=== PATIENT | male | born 1955 | race Hispanic/Latino ===

== ENCOUNTER 2018-12-12 08:20 | Inpatient (IN) | payer OTHER ==
[2018-12-12 08:52] LABS: Basophils % (Auto) 0.6 % (0.0-1.8); Eosinophils % (Auto) 0.3 % (0.0-4.3); Hemoglobin 15.5 gm/dl (11.8-15.2); Lymphocytes # (Auto) 1.2 K/mm3 (1.2-5.4); Lymphocytes % (Auto) 18.9 % (13.4-35.0); Mean Corpuscular HGB Conc 34 % (32-34); Mean Corpuscular Volume 107 fl (84-94); Monocytes # (Auto) 0.6 K/mm3 (0.0-0.8); Platelet Count 107 K/mm3 (140-440); Red Blood Count 4.32 M/mm3 (3.65-5.03); Red Cell Distribution Width 13.4 % (13.2-15.2)
[2018-12-12 09:06] LABS: BUN/Creatinine Ratio 12; Blood Urea Nitrogen 11 mg/dL (9-20); Calcium 8.9 mg/dL (8.4-10.2); Hemolysis Index 48
--- NOTE | 2018-12-12 09:12 | XRay Report ---
CHEST 2 VIEWS INDICATION: Chest Pain. COMPARISON: None FINDINGS: Support devices: None. Heart: Mild cardiomegaly Lungs/pleura: Mild pulmonary venous congestion and trace pleural effusions. Mild bibasilar atelectasi s is also suspected. No infiltrate. No pneumothorax. Additional findings: None. IMPRESSION: Mild CHF is suspected. Signer Name: David Matamoros Jr, MD Signed: 12/12/2018 9:08 AM Workstation Name: [id number]
[2018-12-12] MEDS ORDERED: LASIX IV STA (09:27)
--- NOTE | 2018-12-12 09:47 | Emergency Department Report ---
<ILEANA REDDY - Last Filed: 12/12/18 10:49> ED Chest Pain HPI - General Chief Complaint: Chest Pain Stated Complaint: CHEST PAIN/WAQAS Time Seen by Provider: 12/12/18 09:26 Source: patient Mode of arrival: Wheelchair Limitations: No Limitations - History of Present Illness Initial Comments: 62-year-old obese male smoker with no significant past medical history outside of peptic ulcer disease since emergency Department complaining of greater than 2 week history of progressively worsening chest pain, shortness of breath, lower extremity swelling which is now in the abdomen and genitals. Reports his symptoms worsen with minimal exertion. Reports no fever, chills, sweats no nausea no vomiting no hemoptysis no hematemesis or hematochezia. Hasn't had some dysuria reporting some postvoid dribbling and hesitancy when starting. To his knowledge he has no prostate history. -: Gradual Onset: during rest, during exertion Pain Location: substernal, left chest Pain Radiation: none Severity: mild Quality: tightness (ache) Consistency: constant Improves With: nothing Worsens With: nothing Other Symptoms: denies: syncope, acid taste in mouth, leg swelling, pa lpitations, burping Treatments Prior to Arrival: none - Related Data On Oral Contraceptives: No Allergies Allergy/AdvReac Type Severity Reaction Status Date / Time No Known Allergies Allergy Unverified 04/01/16 12:37 Heart Score - HEART Score History: Slightly suspicious EKG: Non-specific Age: 45-65 Risk factors: 1-2 risk factors Troponin: < normal limit HEART Score: 3 ED Review of Systems Comment: All other systems reviewed and negative ED Past Medical Hx - Past Medical History Previous Medical History?: No - Surgical History Additional Surgical History: abdominal surgery on ulcer - Social History Smoking Status: Current Every Day Smoker Substance Use Type: Alcohol ED Physical Exam - General Limitations: No Limitations General appearance: alert - Head Head exam: Present: atraumatic, normocephalic - Eye Eye exam: Present: normal appearance, PERRL - ENT ENT exam: Present: mucous membranes moist - Neck Neck exam: Present: normal inspection, other (mild JVD noted no bruits) - Respiratory Respiratory exam: Present: normal lung sounds bilaterally, rales. Absent: respiratory distress - Cardiovascular Cardiovascular Exam: Present: regular rate, normal rhythm. Absent: systolic murmur, diastolic murmur, rubs, gallop - GI/Abdominal GI/Abdominal exam: Present: soft, normal bowel sounds, other (swollen abdomen normal tympany no caput medusa) - Rectal Rectal exam: Present: deferred - Extremities Exam Extremities exam: Present: normal inspection, normal capillary refill, pedal edema (2+ bilateral Lotrimin edema extending into his lower legs and thighs also to the genitalia) - Back Exam Back exam: Present: normal inspection. Absent: CVA tenderness (R), CVA tenderness (L) - Neurological Exam Neurological exam: Present: alert, oriented X3, CN II-XII intact, normal gait - Psychiatric Psychiatric exam: Present: normal affect, normal mood - Skin Skin exam: Present: warm, dry, intact, normal color. Absent: rash ED Course - Consultations Consultation #1: 12/12/18 10:50 Case discussed with the hospitalists who advised me to admit the patient to telemetry and advised that I plays bridge orders. CHAI score - Chai Score Age > 65: (0) No Aspirin use within the Past 7 Days: (0) No 3 or more CAD Risk Factors: (0) No 2 or more Angina events in past 24 hrs: (0) No Known CAD with more than 50% Stenosis: (0) No Elevated Cardiac Markers: (0) No ST Deviation Greater than 0.5mm: (0) No CHAI Score: 0 ED Medical Decision Making - Lab Data Result diagrams: 12/12/18 08:39 12/12/18 08:39 - EKG Data EKG shows normal: sinus rhythm Rate: tachycardia - EKG Data When compared to previous EKG there are: previous EKG unavailable - Radiology Data Radiology results: report reviewed (chest x-ray shows mild CHF suspected) - Medical Decision Making 62-year-old male smoker with hypertension untreated and progressively worsening dyspnea angle tenderness swelling with chest x-ray indicative of CHF. Lungs have fluid as well swelling has progressed from the lower legs up to his head and abdomen his the is bordering anasarca. Plan is to admit to the hospital for diuresis and further evaluation of his cardiac function will likely need to obtain an echo to evaluate his ejection fraction and the severity of his cardiovascular disease that is currently untreated. I discussed with him the need to deep increase his smoking. Also need to have his prostate evaluated at some point this the issue she hasn't only began with the initiation of a swelling just over 2 weeks ago will reevaluate his urinary pattern also swelling has resolved. ED Disposition Clinical Impression: Heart failure Qualifiers: Heart failure type: unspecified Heart failure chronicity: acute Qualified Code(s): I50.9 - Heart failure, unspecified Dyspnea Qualifiers: Dyspnea type: shortness of breath Qualified Code(s): R06.02 - Shortness of breath; R06.00 - Dyspnea, unspecified; R06.01 - Orthopnea Chest pain Qualifiers: Chest pain type: unspecified Qualified Code(s): R07.9 - Chest pain, unspecified Disposition: 09 OP ADMIT IP TO THIS HOSP Is pt being admited?: Yes Does the pt Need Aspirin: Yes Condition: Critical <BIMAL IZAGUIRRE III - Last Filed: 12/12/18 10:56> ED Review of Systems ROS: Stated complaint: CHEST PAIN/WAQAS Other details as noted in HPI ED Physical Exam - General Limitations: No Limitations General appearance: alert - Head Head exam: Present: atraumatic, normocephalic - Eye Eye exam: Present: normal appearance, PERRL - ENT ENT exam: Present: mucous membranes moist - Neck Neck exam: Present: normal inspection - Respiratory Respiratory exam: Present: rales - Cardiovascular Cardiovascular Exam: Present: regular rate, normal rhythm - GI/Abdominal GI/Abdominal exam: Present: soft, normal bowel sounds. Absent: distended, te nderness, guarding ED Course Vital Signs 12/12/18 08:28 Temperature 97.8 F Pulse Rate 112 H Respiratory 24 Rate Blood Pressure 149/101 O2 Sat by Pulse 98 Oximetry - Reevaluation(s) Reevaluation #1: I examined the patient. Patient states she came in for chest pain shortness of breath. Patient will be admitted to the hospital service. Patient agrees with plan of care. I discussed all results patient. 12/12/18 10:41 ED Medical Decision Making - Lab Data Result diagrams: 12/12/18 08:39 12/12/18 08:39 Critical care attestation.: If time is entered above; I have spent that time in minutes in the direct care of this critically ill patient, excluding procedure time. ED Disposition Is pt being admited?: Yes Does the pt Need Aspirin: Yes Time of Disposition: 10:56
[2018-12-12] MEDS ORDERED: ASPIRIN PO STA (10:00)
--- NOTE | 2018-12-12 10:46 | History and Physical Report ---
History of Present Illness Date of examination: 12/12/18 Date of admission: 12/12/18 Chief complaint: Chest pain shortness of breath , swelling external genitalia extremities for the last 2 weeks History of present illness: 62-yr obese male patient with ongoing tobacco use presented to the emergency room with bilateral lower extremity edema and lower abdominal wall and scrotal edema for the last 2 weeks, patient has no significant past medical history not on any medications Patient denies chest pain complaints of shortness of breath, reduced effort tolerance, mild orthopnea Patient has no urinary symptoms no nausea vomiting or abdominal pain Initial workup is consistent with congestive heart failure, elevated BNP, chest x-ray mild CHF Past History Past Medical History: No medical history Past Surgical History: Other (peptic ulcer surgery) Social history: smoking. denies: alcohol abuse, prescription drug abuse Family history: hypertension Medications and Allergies Allergies Allergy/AdvReac Type Severity Reaction Status Date / Time No Known Allergies Allergy Verified 12/12/18 11:11 Home Medications Medication Instructions Recorded Confirmed Last Taken Type No Known Home Medications [No 12/12/18 12/12/18 Unknown History Reported Home Medications] Active Meds: Active Medications Aspirin (Aspirin) 325 mg PO ONCE STA Stop: 12/12/18 10:01 Review of Systems Constitutional: weakness, no weight loss, no weight gain Ears, nose, mouth and throat: no nasal congestion, no nasal discharge Cardiovascular: edema, shortness of breath, no chest pain Respiratory: cough, shortness of breath Gastrointestinal: no abdominal pain, no nausea, no vomiting Genitourinary Male: no dysuria Musculoskeletal: no myalgias, no arthritis Integumentary: no rash, no lesions Neurological: weakness, no seizures, no syncope Psychiatric: no anxiety, no depression Endocrine: no cold intolerance, no heat intolerance Hematologic/Lymphatic: no easy bruising, no easy bleeding Allergic/Immunologic: no urticaria, no allergic rhinitis Exam - Constitutional Vitals: Temp Pulse Resp BP Pulse Ox 97.8 F 112 H 24 149/101 98 12/12/18 08:28 12/12/18 08:28 12/12/18 08:28 12/12/18 08:28 12/12/18 08:28 General appearance: Present: mild distress, well-nourished, obese - EENT Eyes: Present: PERRL, EOM intact - Neck Neck: Present: supple, normal ROM - Respiratory Respiratory effort: normal Respiratory: bilateral: diminished, rales, negative: rhonchi, wheezing - Cardiovascular Rhythm: regular Heart Sounds: Present: S1 & S2 - Extremities Extremities: no ischemia Extremity abnormal: edema - Abdominal General gastrointestinal: Present: soft, non-tender, non-distended, normal bowel sounds Male genitourinary: Present: scrotal edema - Integumentary Integumentary: Present: clear, warm - Musculoskeletal Musculoskeletal: strength equal bilaterally - Psychiatric Psychiatric: appropriate mood/affect, cooperative - Neurologic Neurologic: CNII-XII intact, moves all extremities Results - Labs CBC & Chem 7: 12/12/18 08:39 12/12/18 08:39 Labs: Abnormal lab results 12/12/18 12/12/18 12/12/18 Range/Units 08:39 08:39 08:39 Hgb 15.5 H (11.8-15.2) gm/dl Hct 46.0 H (35.5-45.6) % MCV 107 H (84-94) fl MCH 36 H (28-32) pg Plt Count 107 L (140-440) K/mm3 Mcclain % (Auto) 9.0 H (0.0-7.3) % Seg Neutrophils % 71.2 H (40.0-70.0) % Sodium 132 L (137-145) mmol/L Chloride 94.1 L (98-107) mmol/L Carbon Dioxide 18 L (22-30) mmol/L Glucose 180 H (75-100) mg/dL NT-Pro-B Natriuret Pep 7938 H (0-900) pg/mL Assessment and Plan --Lower extremity edema; Possible congestive heart failure IV diuretics input output monitoring Low-sodium diet, daily weights --Possible congestive heart failure; Normal ejection fraction, echocardiogram for LV function and EF IV Lasix, beta blockers, andrew inhibitors, low sodium diet Fluid restriction, input output monitoring cardiology consult if needed --Hyponatremia; probably secondary to fluid overload diuretics, closely monitor electrolytes --Ongoing tobacco use; smoking cessation Nicotine patch as needed --Obesity; BMI 32.1 Advice H reduction when medically stable --DVT prophylaxis; Lovenox Monitor clinically and adjust management as needed
[2018-12-12] MEDS ORDERED: ASPIRIN ONE (11:12)
[2018-12-12] MEDS: ZESTRIL PO SCH (16:52)
[2018-12-12] MEDS: HABITROL TD SCH (16:54)
[2018-12-12] MEDS: LASIX IV SCH (16:59)
[2018-12-12] MEDS ORDERED: TYLENOL PO PRN (19:57)
[2018-12-12] MEDS ORDERED: COREG PO SCH (22:00)
[2018-12-12] MEDS: PEPCID PO SCH (22:27)
[2018-12-12] MEDS: ENOXAPARIN SUB-Q SCH (23:51)
[2018-12-13 05:14] LABS: BUN/Creatinine Ratio 15; Blood Urea Nitrogen 12 mg/dL (9-20); Calcium 8.6 mg/dL (8.4-10.2); Hemolysis Index 10
[2018-12-13] MEDS ORDERED: COREG PO SCH (07:55)
[2018-12-13] MEDS: LASIX IV SCH ×2 (07:59→19:02)
--- NOTE | 2018-12-13 08:02 | Progress Note ---
Assessment and Plan Assessment and plan: --New onset dilated cardiomyopathy; ejection fraction 10-15% IV diuretics, beta blockers, andrew inhibitors, input output monitoring Daily weights, low sodium diet, fluid restriction Cardiology consult . --Lower extremity edema; present on admission Due to congestive heart failure Mild improvement, continue current management --Hyponatremia; probably secondary to fluid overload diuretics, mild improvement --Hypokalemia; replace with KCl --Hypomagnesemia; replace with IV mag sulfate Monitor electrolytes --Ongoing tobacco use; smoking cessation Nicotine patch as needed --Obesity; BMI 32.1 - 30.7 Probably due to fluid overload --DVT prophylaxis; Lovenox Monitor clinically and adjust management as needed Follow cardiology evaluation and recommendations Plan of care discussed with the patient History Interval history: Patient seen and examined medical records reviewed Patient feels slightly better still has, pedal edema Echocardiogram revealed cardiomyopathy here for 10-15% Patient still has mild shortness of breath, denies chest pain Unable to sleep last night Vital signs reviewed Hospitalist Physical - Constitutional Vitals: Temp Pulse Resp BP Pulse Ox 97.9 F 92 H 20 110/78 95 12/13/18 05:09 12/13/18 05:08 12/13/18 05:09 12/13/18 05:08 12/13/18 05:08 General appearance: Present: mild distress, well-nourished, obese - EENT Eyes: Present: PERRL, EOM intact - Neck Neck: Present: supple, normal ROM - Respiratory Respiratory effort: normal Respiratory: bilateral: diminished, rales, negative: rhonchi, wheezing - Cardiovascular Rhythm: regular Heart Sounds: Present: S1 & S2 - Extremities Extremities: no ischemia Extremity abnormal: edema - Abdominal General gastrointestinal: soft, non-tender, non-distended, normal bowel sounds - Integumentary Integumentary: Present: clear, warm - Psychiatric Psychiatric: appropriate mood/affect, cooperative - Neurologic Neurologic: CNII-XII intact, moves all extremities Results - Labs CBC & Chem 7: 12/12/18 08:39 12/13/18 04:19 Labs: Laboratory Last Values WBC 6.1 K/mm3 (4.5-11.0) 12/12/18 08:39 RBC 4.32 M/mm3 (3.65-5.03) 12/12/18 08:39 Hgb 15.5 gm/dl (11.8-15.2) H 12/12/18 08:39 Hct 46.0 % (35.5-45.6) H 12/12/18 08:39 MCV 107 fl (84-94) H 12/12/18 08:39 MCH 36 pg (28-32) H 12/12/18 08:39 MCHC 34 % (32-34) 12/12/18 08:39 RDW 13.4 % (13.2-15.2) 12/12/18 08:39 Plt Count 107 K/mm3 (140-440) L 12/12/18 08:39 Lymph % (Auto) 18.9 % (13.4-35.0) 12/12/18 08:39 Mora % (Auto) 9.0 % (0.0-7.3) H 12/12/18 08:39 Eos % (Auto) 0.3 % (0.0-4.3) 12/12/18 08:39 Baso % (Auto) 0.6 % (0.0-1.8) 12/12/18 08:39 Lymph # 1.2 K/mm3 (1.2-5.4) 12/12/18 08:39 Mora # 0.6 K/mm3 (0.0-0.8) 12/12/18 08:39 Eos # 0.0 K/mm3 (0.0-0.4) 12/12/18 08:39 Baso # 0.0 K/mm3 (0.0-0.1) 12/12/18 08:39 Seg Neutrophils % 71.2 % (40.0-70.0) H 12/12/18 08:39 Seg Neutrophils # 4.4 K/mm3 (1.8-7.7) 12/12/18 08:39 Sodium 135 mmol/L (137-145) L 12/13/18 04:19 Potassium 3.1 mmol/L (3.6-5.0) L D 12/13/18 04:19 Chloride 97.0 mmol/L (98-107) L 12/13/18 04:19 Carbon Dioxide 21 mmol/L (22-30) L 12/13/18 04:19 Anion Gap 20 mmol/L 12/13/18 04:19 BUN 12 mg/dL (9-20) 12/13/18 04:19 Creatinine 0.8 mg/dL (0.8-1.5) 12/13/18 04:19 Estimated GFR > 60 ml/min 12/13/18 04:19 BUN/Creatinine Ratio 15 % 12/13/18 04:19 Glucose 157 mg/dL (75-100) H 12/13/18 04:19 Calcium 8.6 mg/dL (8.4-10.2) 12/13/18 04:19 Magnesium 1.50 mg/dL (1.7-2.3) L 12/13/18 04:19 Troponin T 0.027 ng/mL (0.00-0.029) 12/12/18 16:32 NT-Pro-B Natriuret Pep 7938 pg/mL (0-900) H 12/12/18 08:39 Active Medications - Current Medications Current Medications: Generic Name Dose Route Start Last Admin Trade Name Freq PRN Reason Stop Dose Admin Acetaminophen 650 mg 12/12/18 19:57 12/12/18 20:38 Tylenol PO 650 mg Q4H PRN Administration Pain, Mild (1-3) Aspirin 81 mg 12/13/18 10:00 Baby Aspirin PO QDAY [facility] Carvedilol 3.125 mg 12/13/18 07:55 Coreg PO BID [facility] Enoxaparin Sodium 40 mg 12/12/18 22:00 12/12/18 23:51 Lovenox SUB-Q 40 mg QDAY@2200 GERARDO Administration Famotidine 20 mg 12/12/18 22:00 12/12/18 22:27 Pepcid PO 20 mg BID GERARDO Administration Furosemide 40 mg 12/12/18 18:00 12/12/18 16:59 Lasix IV 40 mg 0600,1800 GERARDO Administration Magnesium Sulfate 2 gm in 50 mls @ 25 mls/hr 12/13/18 07:57 Magnesium Sulfate 2gm/50ml IV 12/13/18 09:56 ONCE ONE Lisinopril 5 mg 12/12/18 15:00 12/12/18 16:52 Zestril PO 5 mg QDAY GERARDO Administration Nicotine 14 mg 12/12/18 15:00 12/12/18 16:54 Habitrol TD 14 mg QDAY GERARDO Administration Potassium Chloride 20 meq 12/13/18 10:00 K-Dur PO QDAY GERARDO Potassium Chloride 40 meq 12/13/18 07:55 K-Dur PO 12/13/18 07:56 ONCE ONE
[2018-12-13] MEDS ORDERED: K-DUR PO ONE (09:00)
[2018-12-13] MEDS ORDERED: MAGNESIUM SULFATE 2GM/50ML 2 GM/50 ML BAG IV ONE (09:30)
[2018-12-13] MEDS: HABITROL TD SCH (09:45)
[2018-12-13] MEDS: PEPCID PO SCH ×2 (09:46→22:47)
[2018-12-13] MEDS: BABY ASPIRIN PO SCH (09:46)
[2018-12-13] MEDS ORDERED: K-DUR PO SCH (10:00)
[2018-12-13] MEDS: COREG PO SCH ×2 (10:50→22:48)
[2018-12-13] MEDS: ZESTRIL PO SCH (10:50)
--- NOTE | 2018-12-13 14:11 | Consultation ---
History of Present Illness Consult date: 12/13/18 Consult reason: congestive heart failure History of present illness: This is a 62-year old male with no prior medical history, who takes no medic ations, that presented with shortness of breath and lower extremity edema. Chest x-ray shows mild interstitial edema. Further evaluation with an echocardiogram reveals a 4 chamber dilated cardiomyopathy with severe decrease LV ejection fraction 10-15%. 12 lead ECG is sinus tachycardia with first degree AV block versus an atrial tachycardia. Cardiac consultation has been requested. Past History Past Medical History: No medical history Social history: smoking. denies: alcohol abuse, prescription drug abuse Family history: hypertension Medications and Allergies Allergies Allergy/AdvReac Type Severity Reaction Status Date / Time No Known Allergies Allergy Verified 12/12/18 11:11 Home Medications Medication Instructions Recorded Confirmed Last Taken Type No Known Home Medications [No 12/12/18 12/12/18 Unknown History Reported Home Medications] Active Meds: Active Medications Acetaminophen (Tylenol) 650 mg PO Q4H PRN PRN Reason: Pain, Mild (1-3) Last Admin: 12/12/18 20:38 Dose: 650 mg Documented by: Aspirin (Baby Aspirin) 81 mg PO QDAY [facility] Last Admin: 12/13/18 09:46 Dose: 81 mg Documented by: Carvedilol (Coreg) 3.125 mg PO BID [facility] Last Admin: 12/13/18 10:50 Dose: 3.125 mg Documented by: Enoxaparin Sodium (Lovenox) 40 mg SUB-Q QDAY@2200 [facility] Last Admin: 12/12/18 23:51 Dose: 40 mg Documented by: Famotidine (Pepcid) 20 mg PO BID [facility] Last Admin: 12/13/18 09:46 Dose: 20 mg Documented by: Furosemide (Lasix) 40 mg IV 0600,1800 [facility] Last Admin: 12/13/18 07:59 Dose: 40 mg Documented by: Lisinopril (Zestril) 5 mg PO QDAY [facility] Last Admin: 12/13/18 10:50 Dose: 5 mg Documented by: Nicotine (Habitrol) 14 mg TD QDAY [facility] Last Admin: 12/13/18 09:45 Dose: 14 mg Documented by: Potassium Chloride (K-Dur) 20 meq PO QDAY [facility] Last Admin: 12/13/18 10:51 Dose: 20 meq Documented by: Physical Examination Vital Signs Temp Pulse Resp BP Pulse Ox 97.8 F 112 H 24 149/101 98 12/12/18 08:28 12/12/18 08:28 12/12/18 08:28 12/12/18 08:28 12/12/18 08:28 General appearance: no acute distress HEENT: Positive: PERRL Neck: Positive: trachea midline Cardiac: Positive: Tachycardia Lungs: Positive: Decreased Breath Sounds Extremities: Present: edema Results 12/12/18 08:39 12/13/18 04:19 Comprehensive Metabolic Panel 12/13/18 Range/Units 04:19 Sodium 135 L (137-145) mmol/L Potassium 3.1 L D (3.6-5.0) mmol/L Chloride 97.0 L (98-107) mmol/L Carbon Dioxide 21 L (22-30) mmol/L BUN 12 (9-20) mg/dL Creatinine 0.8 (0.8-1.5) mg/dL Glucose 157 H (75-100) mg/dL Calcium 8.6 (8.4-10.2) mg/dL Assessment and Plan Acute systolic heart failure Hypokalemia Thrombocytopenia Tobacco abuse Echocardiogram reveals a 4 chamber dilated cardiomyopathy with severe decrease LV ejection fraction 10-15%. ECG is sinus tachycardia with first degree AV block versus an atrial tachycardia. Recommendations: Medical therapy for systolic heart failure to include IV diuretics, afterload reduction agents and beta blockers. Pre-discharge stress thallium test. LifeVest placement on discharge.
[2018-12-13] MEDS: ENOXAPARIN SUB-Q SCH (22:47)
[2018-12-14 05:42] LABS: BUN/Creatinine Ratio 18; Blood Urea Nitrogen 14 mg/dL (9-20); Calcium 8.9 mg/dL (8.4-10.2); Hemolysis Index 6
[2018-12-14] MEDS: LASIX IV SCH ×2 (06:09→18:53)
--- NOTE | 2018-12-14 09:08 | Progress Note ---
Assessment and Plan Acute systolic heart failure, new diagnosis Hypokalemia Thrombocytopenia Tobacco abuse Echocardiogram reveals a 4-chamber dilated cardiomyopathy with severe decrease LV ejection fraction 10-15%. ECG is sinus tachycardia with first degree AV block versus an atrial tachycardia. Recommendations: Sodium/fluid restriction. Aggressive medical therapy for heart failure including afterload agents, beta blockers, oral antiplatelets, diuretics and spironolactone. Predischarge pharmacologic stress test with thallium. Patient will also be considered for a LifeVest monitor on discharge. Subjective Date of service: 12/14/18 Interval history: Patient has no complaints. Admits he is diuresing well. Objective Vital Signs Temp Pulse Resp BP Pulse Ox 12/14/18 05:32 98.6 F 92 H 22 101/68 96 12/14/18 02:00 20 12/13/18 23:28 97.7 F 94 H 18 107/77 88 12/13/18 22:48 88 12/13/18 16:38 97.8 F 89 20 100/70 97 12/13/18 11:09 97.9 F 95 H 20 100/69 94 12/13/18 10:50 94 H 100/66 - Physical Examination General: No Apparent Distress HEENT: Positive: PERRL Neck: Positive: trachea midline Cardiac: Positive: Reg Rate and Rhythm Lungs: Positive: Decreased Breath Sounds Neuro: Positive: Grossly Intact Extremities: Present: edema - Labs and Meds Comprehensive Metabolic Panel 12/14/18 Range/Units 04:40 Sodium 133 L (137-145) mmol/L Potassium 3.6 (3.6-5.0) mmol/L Chloride 95.2 L (98-107) mmol/L Carbon Dioxide 23 (22-30) mmol/L BUN 14 (9-20) mg/dL Creatinine 0.8 (0.8-1.5) mg/dL Glucose 132 H (75-100) mg/dL Calcium 8.9 (8.4-10.2) mg/dL
[2018-12-14] MEDS ORDERED: MAGNESIUM SULFATE 2GM/50ML 2 GM/50 ML BAG IV ONE (09:30)
[2018-12-14] MEDS: HABITROL TD SCH (10:04)
[2018-12-14] MEDS: COREG PO SCH ×2 (10:06→21:10)
[2018-12-14] MEDS: BABY ASPIRIN PO SCH (10:07)
[2018-12-14] MEDS: ALDACTONE PO SCH (10:07)
[2018-12-14] MEDS: PEPCID PO SCH ×2 (10:07→21:14)
[2018-12-14] MEDS: ZESTRIL PO SCH (10:09)
--- NOTE | 2018-12-14 15:23 | Progress Note ---
Assessment and Plan Assessment and plan: --New onset dilated cardiomyopathy; ejection fraction 10-15% IV diuretics, beta blockers, andrew inhibitors, input output monitoring Daily weights, low sodium diet, fluid restriction Cardiology following stress test tomorrow, --Lower extremity edema; present on admission Due to congestive heart failure Mild improvement, continue current management --Hyponatremia; probably secondary to fluid overload diuretics, mild improvement --Hypokalemia; replace with KCl --Hypomagnesemia; replace with IV mag sulfate Monitor electrolytes --Ongoing tobacco use; smoking cessation Nicotine patch as needed --Obesity; BMI 32.1 - 30.7 Probably due to fluid overload --DVT prophylaxis; Lovenox Monitor clinically and adjust management as needed Follow cardiology evaluation and recommendations Plan of care discussed with the patient History Interval history: Patient seen and examined medical records reviewed Patient continues to have shortness of breath significantly improved since yesterday Alert awake oriented, vital signs noted Hospitalist Physical - Constitutional Vitals: Temp Pulse Resp BP Pulse Ox 97.6 F 90 22 95/62 96 12/14/18 11:34 12/14/18 11:34 12/14/18 11:34 12/14/18 11:34 12/14/18 11:34 General appearance: Present: mild distress, well-nourished, obese - EENT Eyes: Present: PERRL, EOM intact - Neck Neck: Present: supple, normal ROM - Respiratory Respiratory effort: normal Respiratory: bilateral: diminished, rales, negative: rhonchi, wheezing - Cardiovascular Rhythm: regular Heart Sounds: Present: S1 & S2 - Extremities Extremities: no ischemia Extremity abnormal: edema - Abdominal General gastrointestinal: soft, non-tender, non-distended, normal bowel sounds - Integumentary Integumentary: Present: clear, warm - Psychiatric Psychiatric: appropriate mood/affect, cooperative - Neurologic Neurologic: moves all extremities Results - Labs CBC & Chem 7: 12/12/18 08:39 12/14/18 04:40 Labs: Laboratory Last Values WBC 6.1 K/mm3 (4.5-11.0) 12/12/18 08:39 RBC 4.32 M/mm3 (3.65-5.03) 12/12/18 08:39 Hgb 15.5 gm/dl (11.8-15.2) H 12/12/18 08:39 Hct 46.0 % (35.5-45.6) H 12/12/18 08:39 MCV 107 fl (84-94) H 12/12/18 08:39 MCH 36 pg (28-32) H 12/12/18 08:39 MCHC 34 % (32-34) 12/12/18 08:39 RDW 13.4 % (13.2-15.2) 12/12/18 08:39 Plt Count 107 K/mm3 (140-440) L 12/12/18 08:39 Lymph % (Auto) 18.9 % (13.4-35.0) 12/12/18 08:39 Luce % (Auto) 9.0 % (0.0-7.3) H 12/12/18 08:39 Eos % (Auto) 0.3 % (0.0-4.3) 12/12/18 08:39 Baso % (Auto) 0.6 % (0.0-1.8) 12/12/18 08:39 Lymph # 1.2 K/mm3 (1.2-5.4) 12/12/18 08:39 Luce # 0.6 K/mm3 (0.0-0.8) 12/12/18 08:39 Eos # 0.0 K/mm3 (0.0-0.4) 12/12/18 08:39 Baso # 0.0 K/mm3 (0.0-0.1) 12/12/18 08:39 Seg Neutrophils % 71.2 % (40.0-70.0) H 12/12/18 08:39 Seg Neutrophils # 4.4 K/mm3 (1.8-7.7) 12/12/18 08:39 Sodium 133 mmol/L (137-145) L 12/14/18 04:40 Potassium 3.6 mmol/L (3.6-5.0) 12/14/18 04:40 Chloride 95.2 mmol/L (98-107) L 12/14/18 04:40 Carbon Dioxide 23 mmol/L (22-30) 12/14/18 04:40 Anion Gap 18 mmol/L 12/14/18 04:40 BUN 14 mg/dL (9-20) 12/14/18 04:40 Creatinine 0.8 mg/dL (0.8-1.5) 12/14/18 04:40 Estimated GFR > 60 ml/min 12/14/18 04:40 BUN/Creatinine Ratio 18 % 12/14/18 04:40 Glucose 132 mg/dL (75-100) H 12/14/18 04:40 Calcium 8.9 mg/dL (8.4-10.2) 12/14/18 04:40 Magnesium 1.60 mg/dL (1.7-2.3) L 12/14/18 04:40 Troponin T 0.027 ng/mL (0.00-0.029) 12/12/18 16:32 NT-Pro-B Natriuret Pep 7938 pg/mL (0-900) H 12/12/18 08:39 Active Medications - Current Medications Current Medications: Generic Name Dose Route Start Last Admin Trade Name Freq PRN Reason Stop Dose Admin Acetaminophen 650 mg 12/12/18 19:57 12/12/18 20:38 Tylenol PO 650 mg Q4H PRN Administration Pain, Mild (1-3) Aspirin 81 mg 12/13/18 10:00 12/14/18 10:07 Baby Aspirin PO 81 mg QDAY GERARDO Administration Carvedilol 3.125 mg 12/13/18 10:00 12/14/18 10:06 Coreg PO 3.125 mg BID GERARDO Administration Enoxaparin Sodium 40 mg 12/12/18 22:00 12/13/18 22:47 Lovenox SUB-Q 40 mg QDAY@2200 GERARDO Administration Famotidine 20 mg 12/12/18 22:00 12/14/18 10:07 Pepcid PO 20 mg BID GERARDO Administration Furosemide 40 mg 12/12/18 18:00 12/14/18 06:09 Lasix IV 40 mg 0600,1800 GERARDO Administration Lisinopril 5 mg 12/12/18 15:00 12/14/18 10:09 Zestril PO Not Given QDAY GERARDO Nicotine 14 mg 12/12/18 15:00 12/14/18 10:04 Habitrol TD 14 mg QDAY GERARDO Administration Spironolactone 25 mg 12/14/18 10:00 12/14/18 10:07 Aldactone PO 25 mg QDAY GERARDO Administration
[2018-12-14] MEDS: ENOXAPARIN SUB-Q SCH (21:12)
[2018-12-15] MEDS: LASIX IV SCH (06:26)
--- NOTE | 2018-12-15 08:49 | Progress Note ---
Assessment and Plan Assessment and plan: Stress test canceled by cardiology --New onset dilated cardiomyopathy; ejection fraction 10-15% IV diuretics, beta blockers, andrew inhibitors,spiranolactone input output monitoring Daily weights, low sodium diet, fluid restriction Cardiology following stress test tomorrow, Patient has LifeVest, patient is refusing to wear due to discomfort --Lower extremity edema; present on admission Due to congestive heart failure Mild improvement, continue current management --Hyponatremia; probably secondary to fluid overload diuretics, mild improvement --Hypokalemia; replace with KCl --Hypomagnesemia; replace with IV mag sulfate Monitor electrolytes --Ongoing tobacco use; smoking cessation Nicotine patch as needed --Obesity; BMI 32.1 - 30.7 Probably due to fluid overload --DVT prophylaxis; Lovenox Monitor clinically and adjust management as needed Follow cardiology evaluation and recommendations Plan of care discussed with the patient History Interval history: Patient seen and examined medical records reviewed Patient is upset because his stress test was canceled today by cardiology Patient denies chest pain or shortness of breath Refusing to life is difficult to discomfort Vital signs noted Hospitalist Physical - Constitutional Vitals: Temp Pulse Resp BP Pulse Ox 97.3 F L 93 H 22 114/86 93 12/15/18 05:47 12/15/18 05:47 12/15/18 05:47 12/15/18 05:47 12/15/18 05:47 General appearance: Present: no acute distress, well-nourished, obese - EENT Eyes: Present: PERRL, EOM intact - Neck Neck: Present: supple, normal ROM - Respiratory Respiratory effort: normal Respiratory: bilateral: diminished, rales, negative: rhonchi, wheezing - Cardiovascular Rhythm: regular Heart Sounds: Present: S1 & S2 - Extremities Extremities: no ischemia Extremity abnormal: edema - Abdominal General gastrointestinal: soft, non-tender, non-distended, normal bowel sounds - Integumentary Integumentary: Present: clear, warm - Psychiatric Psychiatric: appropriate mood/affect, cooperative - Neurologic Neurologic: CNII-XII intact, moves all extremities Results - Labs CBC & Chem 7: 12/12/18 08:39 12/14/18 04:40 Labs: Laboratory Last Values WBC 6.1 K/mm3 (4.5-11.0) 12/12/18 08:39 RBC 4.32 M/mm3 (3.65-5.03) 12/12/18 08:39 Hgb 15.5 gm/dl (11.8-15.2) H 12/12/18 08:39 Hct 46.0 % (35.5-45.6) H 12/12/18 08:39 MCV 107 fl (84-94) H 12/12/18 08:39 MCH 36 pg (28-32) H 12/12/18 08:39 MCHC 34 % (32-34) 12/12/18 08:39 RDW 13.4 % (13.2-15.2) 12/12/18 08:39 Plt Count 107 K/mm3 (140-440) L 12/12/18 08:39 Lymph % (Auto) 18.9 % (13.4-35.0) 12/12/18 08:39 [place] % (Auto) 9.0 % (0.0-7.3) H 12/12/18 08:39 Eos % (Auto) 0.3 % (0.0-4.3) 12/12/18 08:39 Baso % (Auto) 0.6 % (0.0-1.8) 12/12/18 08:39 Lymph # 1.2 K/mm3 (1.2-5.4) 12/12/18 08:39 [place] # 0.6 K/mm3 (0.0-0.8) 12/12/18 08:39 Eos # 0.0 K/mm3 (0.0-0.4) 12/12/18 08:39 Baso # 0.0 K/mm3 (0.0-0.1) 12/12/18 08:39 Seg Neutrophils % 71.2 % (40.0-70.0) H 12/12/18 08:39 Seg Neutrophils # 4.4 K/mm3 (1.8-7.7) 12/12/18 08:39 Sodium 133 mmol/L (137-145) L 12/14/18 04:40 Potassium 3.6 mmol/L (3.6-5.0) 12/14/18 04:40 Chloride 95.2 mmol/L (98-107) L 12/14/18 04:40 Carbon Dioxide 23 mmol/L (22-30) 12/14/18 04:40 Anion Gap 18 mmol/L 12/14/18 04:40 BUN 14 mg/dL (9-20) 12/14/18 04:40 Creatinine 0.8 mg/dL (0.8-1.5) 12/14/18 04:40 Estimated GFR > 60 ml/min 12/14/18 04:40 BUN/Creatinine Ratio 18 % 12/14/18 04:40 Glucose 132 mg/dL (75-100) H 12/14/18 04:40 Calcium 8.9 mg/dL (8.4-10.2) 12/14/18 04:40 Magnesium 1.60 mg/dL (1.7-2.3) L 12/14/18 04:40 Troponin T 0.027 ng/mL (0.00-0.029) 12/12/18 16:32 NT-Pro-B Natriuret Pep 7938 pg/mL (0-900) H 12/12/18 08:39 Active Medications - Current Medications Current Medications: Generic Name Dose Route Start Last Admin Trade Name Freq PRN Reason Stop Dose Admin Acetaminophen 650 mg 12/12/18 19:57 12/12/18 20:38 Tylenol PO 650 mg Q4H PRN Administration Pain, Mild (1-3) Aspirin 81 mg 12/13/18 10:00 12/14/18 10:07 Baby Aspirin PO 81 mg QDAY GERARDO Administration Carvedilol 3.125 mg 12/13/18 10:00 12/14/18 21:10 Coreg PO 3.125 mg BID GERARDO Administration Enoxaparin Sodium 40 mg 12/12/18 22:00 12/14/18 21:12 Lovenox SUB-Q 40 mg QDAY@2200 GERARDO Administration Famotidine 20 mg 12/12/18 22:00 12/14/18 21:14 Pepcid PO 20 mg BID GERARDO Administration Furosemide 40 mg 12/12/18 18:00 12/15/18 06:26 Lasix IV 40 mg 0600,1800 GERARDO Administration Lisinopril 5 mg 12/12/18 15:00 12/14/18 10:09 Zestril PO Not Given QDAY GERARDO Nicotine 14 mg 12/12/18 15:00 12/14/18 10:04 Habitrol TD 14 mg QDAY GERARDO Administration Spironolactone 25 mg 12/14/18 10:00 12/14/18 10:07 Aldactone PO 25 mg QDAY GERARDO Administration
[2018-12-15] MEDS: ALDACTONE PO SCH (09:52)
[2018-12-15] MEDS: BABY ASPIRIN PO SCH (09:52)
[2018-12-15] MEDS: COREG PO SCH (09:53)
[2018-12-15] MEDS: HABITROL TD SCH (09:53)
[2018-12-15] MEDS: PEPCID PO SCH (09:53)
[2018-12-15] MEDS: ZESTRIL PO SCH (09:53)
--- NOTE | 2018-12-15 11:59 | Progress Note ---
Assessment and Plan - Patient Problems (1) Heart failure Current Visit: Yes Status: Acute Qualifiers: Heart failure type: unspecified Heart failure chronicity: acute Qualified Code(s): I50.9 - Heart failure, unspecified Plan to address problem: Patient presented with symptoms of for systolic heart failure, four-chamber cardiomyopathy on echocardiogram suggests a nonischemic cardiomyopathy. He has been fitted with LifeVest monitoring, and is on guideline directed medical therapy for cardiomyopathy and systolic heart failure. The patient is stable for cardiac discharge, he will follow up in our office in one week, and pharmacologic stress testing for ischemia assessment will be done in the outpatient setting. Subjective Date of service: 12/15/18 Interval history: Patient is comfortable, looks and feels well, no cardiac complaints. He wants to go home today. He was fitted last night with LifeVest for outpatient monitoring. Objective Vital Signs Temp Pulse Resp BP Pulse Ox 12/15/18 05:47 97.3 F L 93 H 22 114/86 93 12/14/18 23:00 19 12/14/18 22:56 98.3 F 87 18 88/55 92 12/14/18 21:10 95 H 116/80 12/14/18 17:32 98.0 F 95 H 22 120/83 95 - Physical Examination General: No Apparent Distress HEENT: Positive: PERRL Neck: Positive: trachea midline Cardiac: Positive: Reg Rate and Rhythm Lungs: Positive: Decreased Breath Sounds Neuro: Positive: Grossly Intact Extremities: Present: edema
[2018-12-15 12:36] VITALS: BP 93/64
[2018-12-15 13:39] LABS: BUN/Creatinine Ratio 16; Blood Urea Nitrogen 16 mg/dL (9-20); Calcium 9.6 mg/dL (8.4-10.2); Hemolysis Index 10
--- NOTE | 2018-12-15 14:13 | Discharge Summary ---
Providers - Providers Date of Admission: 12/12/18 10:46 Date of discharge: 12/15/18 Attending physician: ELIZABETH MATTHEWS 12/13/18 07:52 Consult to Physician [CONS] Routine Comment: Consulting Provider: ALEXIS SANCHEZ Physician Instructions: Reason For Exam: New onset Dila CMP EF 10-15% Primary care physician: DEL ALEJANDRA MD Hospitalization Condition: Fair Disposition: DC-01 TO HOME OR SELFCARE Time spent for discharge: 32 min Core Measure Documentation - Palliative Care Palliative Care/ Comfort Measures: Not Applicable - Core Measures Any of the following diagnoses?: heart failure - Heart Failure Discharge Requirements ALBINA/ARB for LVSD if EF <40%: Yes Beta alisa at discharge: Yes Exam - Constitutional Vitals: Temp Pulse Resp BP Pulse Ox 98.6 F 92 H 20 93/64 91 12/15/18 11:42 12/15/18 11:42 12/15/18 11:42 12/15/18 11:42 12/15/18 11:42 General appearance: Present: no acute distress, well-nourished - EENT Eyes: Present: PERRL, EOM intact - Neck Neck: Present: supple, normal ROM - Respiratory Respiratory effort: normal Respiratory: bilateral: diminished, rales, negative: rhonchi, wheezing - Cardiovascular Rhythm: regular Heart Sounds: Present: S1 & S2 - Extremities Extremities: no ischemia Extremity abnormal: edema - Abdominal General gastrointestinal: Present: soft, non-tender, non-distended, normal bowel sounds - Integumentary Integumentary: Present: clear, warm - Musculoskeletal Musculoskeletal: strength equal bilaterally - Psychiatric Psychiatric: appropriate mood/affect, cooperative - Neurologic Neurologic: CNII-XII intact, moves all extremities Plan Activity: advance as tolerated, fall precautions Diet: low salt, other (cardiac diet) Special Instructions: restrict fluid intake to (1000ml/24 hrs) Additional Instructions: Advised to wear LifeVest all the time. Low-sodium diet. If you have chest pain or shortness of breath contact M.D. or go to emergency room Follow up with: DEL ALEJANDRA MD [Primary Care Provider] - 7 Days ALEXIS SANCHEZ MD [Staff Physician] - 7 Days Prescriptions: Spironolactone [Aldactone] 25 mg PO QDAY #30 tablet Aspirin [Aspirin BABY CHEW TAB] 81 mg PO QDAY #30 tab.chew Carvedilol [Coreg] 3.125 mg PO BID #60 tablet Nicotine [Habitrol] 14 mg TD QDAY #30 patch Potassium Chloride [K-Dur] 10 meq PO QDAY #30 tablet Furosemide [Lasix TAB] 40 mg PO QDAY #30 tablet Magnesium Oxide [Mag-Ox] 400 mg PO QDAY #7 tablet Lisinopril [Zestril TAB] 5 mg PO QDAY #30 tablet
[2018-12-15] MEDS ORDERED: MAG-OX PO ONE (14:35)
[2018-12-16] MEDS ORDERED: MAG-OX PO SCH (10:00)
== END 2018-12-15 16:05 | disposition home or self-care (01) | DRG 314 ==
LOC: ED 08:20 → 3A 10:46
PROVIDERS: ADMIT Internal Medicine; ATTEND Internal Medicine
DX: I42.0 Dilated cardiomyopathy (principal); I50.21 Acute systolic (congestive) heart failure; E87.1 Hypo-osmolality and hyponatremia; F17.200 Nicotine dependence, unspecified, uncomplicated; E87.6 Hypokalemia; D69.6 Thrombocytopenia, unspecified; E83.42 Hypomagnesemia; E66.9 Obesity, unspecified; Z87.11 Personal history of peptic ulcer disease; Z82.49 Family history of ischemic heart disease and other diseases of the circulatory system; Z71.6 Tobacco abuse counseling; Z68.32 Body mass index [BMI] 32.0-32.9, adult
CPT/HCPCS: 36415; 71046; 80048; 83735; 83880; 84484; 85025; 93005; 93010; 93306; 96372; 96374; G0378; J1650; J1940; J3475